=== PATIENT | male | born 1965 | race Caucasian/White ===

== ENCOUNTER 2019-06-10 20:44 | Inpatient (IN) | payer OTHER, SELFPAY ==
[~2019-06-10] VITALS: Ht 172.7 cm; Wt 79.4 kg
[2019-06-10 22:07] LABS: BASOPHIL % 0.3 % (0-2); PLATELET COUNT 366 x10^3mcL (130-400); RED CELL DISTRIBUTION WIDTH 13.6 % (11.5-14.5)
[2019-06-10 22:21] LABS: ALBUMIN 3.4 g/dL (3.4-5.0); ALKALINE PHOSPHATASE 87 U/L (46-116); ALT/SGPT 25 U/L (16-63); AST/SGOT 16 U/L (15-37); BILIRUBIN TOTAL 0.6 mg/dL (0.20-1.00); CALCIUM 8.6 mg/dL (8.5-10.1); CARBON DIOXIDE 27.1 mmol/L (21-32); CHLORIDE SERUM 104 mmol/L (98-107); GFR1 > 60 mL/min; GLUCOSE SERUM 94 mg/dL (74-106); LIPASE 107 IU/L (73-393); SODIUM SERUM 141 mmol/L (136-145); TOTAL PROTEIN, SERUM 6.7 g/dL (6.4-8.2)
[2019-06-11 01:00] VITALS: BP 161/91
[2019-06-11 03:21] VITALS: BP 161/91
[2019-06-11 06:29] LABS: BASOPHIL % 0.4 % (0-2); PLATELET COUNT 365 x10^3mcL (130-400)
[2019-06-11 06:45] LABS: CALCIUM 8.8 mg/dL (8.5-10.1); CARBON DIOXIDE 25.3 mmol/L (21-32); CHLORIDE SERUM 106 mmol/L (98-107); CREATININE SERUM 0.9 mg/dL (0.7-1.3); GFR1 > 60 mL/min; GLUCOSE SERUM 86 mg/dL (74-106); MAGNESIUM 2.3 mg/dL (1.8-2.4); PHOSPHOROUS 3.4 mg/dL (2.5-4.9); POTASSIUM SERUM 3.5 mmol/L (3.5-5.1); SODIUM SERUM 141 mmol/L (136-145)
[2019-06-11 07:00] VITALS: BP 156/96
[2019-06-11 11:00] VITALS: BP 149/88
[2019-06-11 17:18] VITALS: BP 150/82
[2019-06-11 21:30] VITALS: BP 138/52
[2019-06-12 06:00] VITALS: BP 147/97
[2019-06-12 07:41] LABS: CALCIUM 8.8 mg/dL (8.5-10.1); CARBON DIOXIDE 27.4 mmol/L (21-32); CHLORIDE SERUM 106 mmol/L (98-107); CREATININE SERUM 1.1 mg/dL (0.7-1.3); GFR1 > 60 mL/min; GLUCOSE SERUM 86 mg/dL (74-106); MAGNESIUM 2.3 mg/dL (1.8-2.4); PHOSPHOROUS 3.6 mg/dL (2.5-4.9); POTASSIUM SERUM 3.9 mmol/L (3.5-5.1); SODIUM SERUM 141 mmol/L (136-145)
[2019-06-12 08:00] VITALS: BP 151/93
[2019-06-12 09:05] LABS: BASOPHIL % 0.4 % (0-2); PLATELET COUNT 411 x10^3mcL (130-400); RED CELL DISTRIBUTION WIDTH 13.8 % (11.5-14.5)
[2019-06-12 12:26] VITALS: BP 135/68
[2019-06-12 17:43] VITALS: BP 130/96
[2019-06-12 21:00] VITALS: BP 139/103
[2019-06-13 06:20] VITALS: BP 174/70
[2019-06-13 06:43] LABS: CARBON DIOXIDE 30.3 mmol/L (21-32); CHLORIDE SERUM 106 mmol/L (98-107); CREATININE SERUM 1.2 mg/dL (0.7-1.3); GFR1 > 60 mL/min; GLUCOSE SERUM 92 mg/dL (74-106); MAGNESIUM 2.2 mg/dL (1.8-2.4); PHOSPHOROUS 3.4 mg/dL (2.5-4.9); POTASSIUM SERUM 4.2 mmol/L (3.5-5.1); RED CELL DISTRIBUTION WIDTH 13.6 % (11.5-14.5); SODIUM SERUM 143 mmol/L (136-145)
[2019-06-13 07:17] LABS: PLATELET COUNT 424 x10^3mcL (130-400)
[2019-06-13 07:18] LABS: BASOPHIL % 0.6 % (0-2)
[2019-06-13 08:43] VITALS: BP 166/100
[2019-06-13 13:53] VITALS: BP 156/106
[2019-06-13 17:40] VITALS: BP 175/115
[2019-06-13 18:57] VITALS: BP 157/102
[2019-06-13 21:40] VITALS: BP 149/97
[2019-06-14 06:02] VITALS: BP 145/96
[2019-06-14 08:55] VITALS: BP 159/103
[2019-06-14 12:33] VITALS: BP 149/89
[2019-06-14 17:27] VITALS: Ht 172.7 cm; Wt 79.4 kg
[2019-06-14 17:29] VITALS: BP 150/104
[2019-06-14 20:58] VITALS: BP 155/104
[2019-06-14 21:01] VITALS: BP 127/89
[2019-06-15 05:43] VITALS: BP 157/109
[2019-06-15 06:44] LABS: BASOPHIL % 0.6 % (0-2); RED CELL DISTRIBUTION WIDTH 13.8 % (11.5-14.5)
[2019-06-15 06:52] VITALS: BP 145/92
[2019-06-15 07:08] LABS: CALCIUM 9.2 mg/dL (8.5-10.1); CARBON DIOXIDE 25.6 mmol/L (21-32); CHLORIDE SERUM 104 mmol/L (98-107); GFR1 > 60 mL/min; GLUCOSE SERUM 98 mg/dL (74-106); MAGNESIUM 2.3 mg/dL (1.8-2.4); PHOSPHOROUS 3.3 mg/dL (2.5-4.9); SODIUM SERUM 139 mmol/L (136-145)
[2019-06-15 07:16] LABS: PLATELET COUNT 430 x10^3mcL (130-400)
[2019-06-15 09:09] VITALS: BP 147/100
[2019-06-15 12:42] VITALS: BP 123/81
[2019-06-15 17:18] VITALS: BP 133/88
[2019-06-15 21:16] VITALS: BP 141/91
[2019-06-16 04:15] VITALS: BP 157/99
[2019-06-16 06:42] LABS: BASOPHIL % 0.9 % (0-2); RED CELL DISTRIBUTION WIDTH 13.6 % (11.5-14.5)
[2019-06-16 06:45] LABS: PLATELET COUNT 446 x10^3mcL (130-400)
[2019-06-16 07:18] LABS: CALCIUM 8.9 mg/dL (8.5-10.1); CARBON DIOXIDE 25.7 mmol/L (21-32); CHLORIDE SERUM 104 mmol/L (98-107); GFR1 > 60 mL/min; GLUCOSE SERUM 91 mg/dL (74-106); SODIUM SERUM 140 mmol/L (136-145)
[2019-06-16 08:23] VITALS: BP 142/108
[2019-06-16] MEDS ORDERED: LIPI10 PO (10:37)
[2019-06-16] MEDS ORDERED: LAC PO (10:38)
[2019-06-16] MEDS ORDERED: NOR5 PO (10:38)
[2019-06-16] MEDS ORDERED: ZES5 PO (10:38)
[2019-06-16] MEDS ORDERED: ZITHROMAX500 M1 IV (10:40)
[2019-06-16] MEDS ORDERED: PREMIERPRO RX CE1 G3 IM (10:41)
[2019-06-16 11:44] VITALS: BP 142/108
[2019-06-16 12:31] VITALS: BP 171/104
[2019-06-16 13:12] VITALS: BP 145/80
== END 2019-06-16 15:40 | DRG 203 ==
LOC: ED 20:44 → MU 22:46 → DU 22:46 → MU 06-14 13:53
PROVIDERS: Emergency Medicine; Student in an Organized Health Care Education/Training Program; ADMIT Family Medicine
DX: M94.0 Chondrocostal junction syndrome [Tietze] (principal); J18.9 Pneumonia, unspecified organism; E87.6 Hypokalemia; J98.11 Atelectasis; I16.0 Hypertensive urgency; F15.10 Other stimulant abuse, uncomplicated; F17.210 Nicotine dependence, cigarettes, uncomplicated; Z59.0 Homelessness; Z79.899 Other long term (current) drug therapy; Z03.818 Encounter for observation for suspected exposure to other biological agents ruled out
CPT/HCPCS: 83880; 85378; 87804; 99406; G0378; J0360; J0456; J0696; J3535; J7030; J7040; J7050; Q0092